=== PATIENT | male | born 1985 | race Caucasian/White ===

== ENCOUNTER → 2017-11-29 | Outpatient (CLI) | payer BC ==
--- NOTE | 2017-11-29 11:13 | XR ---
EXAMINATION TYPE: XR shoulder complete RT DATE OF EXAM: 11/29/2017 CLINICAL HISTORY: Intermittent right shoulder pain TECHNIQUE: Three views of the right shoulder are obtained. COMPARISON: None. FINDINGS: There is no acute fracture/dislocation evident in the right shoulder. The acromioclavicul ar and glenohumeral joint spaces appear within normal limits. Calcific tendinosis is seen at the inse rtion on the right rotator cuff. The visualized ribs are intact and unremarkable. IMPRESSION: 1. No acute fracture or dislocation in the right shoulder. 2. Insertional calcific tendinosis of the right rotator cuff.
== END | disposition home or self-care (01) ==
LOC: RADXRYALE 10:41
PROVIDERS: ATTEND Internal Medicine
DX: M67.814 Other specified disorders of tendon, left shoulder (principal)

== ENCOUNTER → 2018-02-03 | Outpatient (CLI) | payer BC ==
--- NOTE | 2018-02-03 21:18 | MR ---
EXAMINATION TYPE: MR shoulder RT wo con DATE OF EXAM: 02/03/2018 COMPARISON: X-ray 11/29/2017 HISTORY: Pain TECHNIQUE: Multiplanar, multisequence imaging of the right shoulder is performed without contrast. FINDINGS: Rotator Cuff: Along the anterior margin and insertion of the supra spinatus tendon is a 3 mm partial tear. Remaining rotator cuff tendons are intact. No retraction. Acromioclavicular Joint: There is hypertrophic change of the AC joint with edema within the acromium and clavicle. Joint spaces preserved. Most likely on the basis of arthropathy rather than trauma aman elate clinically. It does appear to be mass effect upon the supraspinatus tendon and muscle. Glenohumeral Joint: No joint effusion. Glenohumeral ligaments are intact. Labrum: There is abnormal signal involving the posterior superior labrum compatible with tear. Biceps Tendon: The long head of biceps is in normal location within bicipital groove. Bone marrow signal: No focal abnormal marrow signal is appreciated. Other: No additional significant abnormality is appreciated. IMPRESSION: 1. Posterior superior labral tear. 2. Mild tendinosis insertion supraspinatus tendon. Partial 3 mm intrasubstance tear anterior fibers s upraspinatus tendon with no retraction. 3. There is edema involving the acromium and clavicle: Increased signal within the joint space. The d istance appears preserved. This likely is reactive marrow edema. Could be on the basis of arthropathy or recent trauma correlate clinically for AC ligament injury. 4. Mild impingement.
== END ==
LOC: RADMRIMAIN 20:29
PROVIDERS: ATTEND Internal Medicine
DX: R93.7 Abnormal findings on diagnostic imaging of other parts of musculoskeletal system (principal); S43.491A Other sprain of right shoulder joint, initial encounter; M75.81 Other shoulder lesions, right shoulder; M25.811 Other specified joint disorders, right shoulder